=== PATIENT | female | born 1995 | race Caucasian/White ===

== ENCOUNTER 2016-12-30 20:22 | Emergency (ER) | payer SELFPAY ==
[~2016-12-30] VITALS: Ht 160 cm; Wt 68.0 kg
[2016-12-30] MEDS ORDERED: LIDOCAINE HCL 1% 20ML VIAL (Pyxis) INJ MC ONE (22:30)
[2016-12-30] MEDS ORDERED: BACITRACIN ZINC OINT UDPKT TOP ONE (22:30)
[2016-12-30 22:55] VITALS: BP 120/60
== END 2016-12-30 23:32 | disposition home or self-care (01) ==
LOC: ER 20:24
DX: S51.811A Laceration without foreign body of right forearm, initial encounter (principal); W26.0XXA Contact with knife, initial encounter; Y93.89 Activity, other specified; Y92.89 Other specified places as the place of occurrence of the external cause; F32.9 Major depressive disorder, single episode, unspecified
CPT/HCPCS: 12002; 99283; J3490; X7700; Z7610